=== PATIENT | male | born 1995 | race Caucasian/White ===

== ENCOUNTER 2018-02-20 20:43 | Emergency (ER) | payer SELFPAY ==
[2018-02-20] MEDS ORDERED: TETANUS & DIPHTHERIA TOX,ADULT 0.5 ML VIAL ONE (21:24)
--- NOTE | 2018-02-20 22:01 | RAD REPORT ---
EXAM DESCRIPTION: CT - Head Brain Wo Cont - 02/20/2018 9:34 pm CLINICAL HISTORY: Headache COMPARISON: CT study December 2016 TECHNIQUE: Axial 5 mm thick images of the head were obtained without IV contrast. All CT scans are performed using dose optimization technique as appropriate and may include automated exposure control or mA/KV adjustment according to patient size. FINDINGS: No intracranial hemorrhage, mass, edema or shift of mid-line structures. No acute infarcti on changes seen. No abnormal extra-axial fluid collections. Ventricles are normal. Mastoid air cells and visualized portions of the paranasal sinuses are clear. No acute bony findings. IMPRESSION: Negative non-contrast CT head examination. No significant change from comparison.
--- NOTE | 2018-02-20 22:35 | ER ---
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 Transition of care: patient was not received from another setting of care. Complicating Factors: There are no complicating factors for this patient. Onset of symptoms was February 20, 2018. Risk Assessment: Do you want to hurt yourself or someone else? Patient reports no desire to harm self or others. Care prior to arrival: None. 20:58 Method Of Arrival: Ambulatory aj 20:58 Acuity: DIEGO 4 aj 21:19 Initial Sepsis Screen: Does the patient meet any 2 criteria? No. Patient's initial tl2 sepsis screen is negative. Does the patient have a suspected source of infection? No. Patient's initial sepsis screen is negative. Triage Assessment: 20:59 General: Appears in no apparent distress. comfortable, Behavior is calm, cooperative, aj appropriate for age. Pain: Complains of pain in top of head. Neuro: Level of Consciousness is awake, alert, obeys commands, Oriented to person, place, time, situation, Appropriate for age. Respiratory: Airway is patent Respiratory effort is even, unlabored, Respiratory pattern is regular, symmetrical. Derm: Skin is intact, is healthy with good turgor, Skin is pink, warm \T\ dry. normal. Injury Description: Laceration sustained to top of head is superficial, not bleeding. Historical: - Allergies: 20:59 No Known Allergies; aj - Home Meds: 20:59 None [Active]; aj - PMHx: 20:59 Seizures; aj - PSHx: 20:59 eye surgery; aj - Immunization history:: Last tetanus immunization: unknown. - Social history:: Smoking status: Patient uses tobacco products, smokes one-half pack cigarettes per day. - Ebola Screening: : No symptoms or risks identified at this time. Screenin:19 Abuse screen: Denies threats or abuse. Nutritional screening: No deficits noted. tl2 Tuberculosis screening: No symptoms or risk factors identified. Fall Risk None identified. Assessment: 21:16 General: Appears in no apparent distress. comfortable, Behavior is calm, cooperative, tl2 appropriate for age. Pain: Complains of pain in top of head. Neuro: Level of Consciousness is awake, alert, obeys commands, Oriented to person, place, time, situation. Neuro: Reports dizziness, headache. Neuro: Denies LOC. Cardiovascular: Denies chest pain. Respiratory: Airway is patent Respiratory effort is even, unlabored, Respiratory pattern is regular, symmetrical. GI: Patient currently denies nausea, vomiting. Musculoskeletal: Circulation, motion, and sensation intact. Injury Description: Abrasion sustained to top of head is scabbed, was sustained 1-2 hours ago. 21:56 Reassessment: Patient appears in no apparent distress at this time. Patient and/or tl2 family updated on plan of care and expected duration. Pain level reassessed. Patient is alert, oriented x 3, equal unlabored respirations, skin warm/dry/pink. Injury Description:. 22:42 Reassessment: Patient appears in no apparent distress at this time. Patient and/or tl2 family updated on plan of care and expected duration. Pain level reassessed. Patient is alert, oriented x 3, equal unlabored respirations, skin warm/dry/pink. Pt verbalized understanding of discharge instructions, need for follow up. Vital Signs: 21:00 BP 140 / 77; Pulse 86; Resp 19; Temp 98.3; Pulse Ox 99% on R/A; Weight 65.77 kg; Height aj 5 ft. 5 in. (165.10 cm); 22:43 Pulse 87; Resp 18; Pulse Ox 99% on R/A; Pain 0/10; tl2 21:00 Body Mass Index 24.13 (65.77 kg, 165.10 cm) ED Course: 20:58 Patient arrived in ED. aj 20:59 Triage completed. aj 21:00 Arm band placed on right wrist. Patient placed in waiting room, Patient notified of aj wait time. 21:14 Argenis Murphy, DENISE is Primary Nurse. tl2 21:15 Nino Jensen NP is PHCP. pm1 21:15 Matias Blancas MD is Attending Physician. pm1 21:19 Patient has correct armband on for positive identification. Bed in low position. Call tl2 light in reach. Side rails up X 1. Adult w/ patient. 21:34 CT Head Brain wo Cont In Process Unspecified. EDMS 21:34 CT completed. Patient tolerated procedure well. Patient moved to CT via wheelchair. vm2 Patient moved back from CT. 22:43 No provider procedures requiring assistance completed. Patient did not have IV access tl2 during this emergency room visit. 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 Exp: tl2 05/22/2020. Lot #: [id number]. } Route: IM; Site: right deltoid; 22:58 Follow up: Response: No adverse reaction tl2 Outcome: 22:34 Discharge ordered by . pm1 22:58 Discharged to home ambulatory, with family. tl2 22:58 Condition: stable 22:58 Discharge instructions given to patient, Instructed on discharge instructions, follow up and referral plans. 22:58 Patient left the ED. tl2 Signatures: Dispatcher [employer] EDMS Cait Acosta RN RN aj Marinas, Patrick, KALI [employer] EQUALIZER pm1 Argenis Murphy RN RN tl2 Sydni Rosen [facility]
--- NOTE | 2018-02-20 22:35 | EDPHYS ---
Physician Documentation [facility] Name: Kal Cool Age: 22 yrs Sex: Male : 1995 Arrival Date: 02/20/2018 Time: 20:58 Bed 23 Private MD: ED Physician Matias Blancas HPI: 02/20 22:06 This 22 yrs old Male presents to ER via Ambulatory with complaints of pm1 Laceration To Head. 22:06 The patient has a laceration related to: working, occurred at work, and there are no pm1 complicating factors. The injury was accidental. The laceration(s) is(are) located on the top of head. Onset: The symptoms/episode began/occurred 3 hour(s) ago. Associated signs and symptoms: Pertinent negatives: deformity, heavy bleeding, loss of consciousness, suspected foreign body. The patient has not experienced similar symptoms in the past. The patient has not recently seen a physician. 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 Complaining of headache since injury. Historical: - Allergies: 20:59 No Known Allergies; aj - Home Meds: 20:59 None [Active]; aj - PMHx: 20:59 Seizures; aj - PSHx: 20:59 eye surgery; aj - Immunization history:: Last tetanus immunization: unknown. - Social history:: Smoking status: Patient uses tobacco products, smokes one-half pack cigarettes per day. - Ebola Screening: : No symptoms or risks identified at this time. ROS: 22:10 Constitutional: Negative for fever, chills, and weight loss, Eyes: Negative for injury, pm1 pain, redness, and discharge, ENT: Negative for injury, pain, and discharge, Neck: Negative for injury, pain, and swelling, Cardiovascular: Negative for chest pain, palpitations, and edema, Respiratory: Negative for shortness of breath, cough, wheezing, and pleuritic chest pain, Abdomen/GI: Negative for abdominal pain, nausea, vomiting, diarrhea, and constipation, Back: Negative for injury and pain, MS/Extremity: Negative for injury and deformity. 22:10 Neuro: Negative for weakness, numbness, tingling, and seizure. Positive for headache 22:10 Skin: Positive for laceration(s), of the top of head. Exam: 22:10 Constitutional: This is a well developed, well nourished patient who is awake, alert, pm1 and in no acute distress. 22:10 Eyes: Pupils equal round and reactive to light, extra-ocular motions intact. Lids and lashes normal. Conjunctiva and sclera are non-icteric and not injected. Cornea within normal limits. Periorbital areas with no swelling, redness, or edema. ENT: Nares patent. No nasal discharge, no septal abnormalities noted. Tympanic membranes are normal and external auditory canals are clear. Oropharynx with no redness, swelling, or masses, exudates, or evidence of obstruction, uvula midline. Mucous membranes moist. Neck: Trachea midline, no thyromegaly or masses palpated, and no cervical lymphadenopathy. Supple, full range of motion without nuchal rigidity, or vertebral point tenderness. No Meningismus. Chest/axilla: Normal chest wall appearance and motion. Nontender with no deformity. No lesions are appreciated. Cardiovascular: Regular rate and rhythm with a normal S1 and S2. No gallops, murmurs, or rubs. Normal PMI, no JVD. No pulse deficits. Respiratory: Lungs have equal breath sounds bilaterally, clear to auscultation and percussion. No rales, rhonchi or wheezes noted. No increased work of breathing, no retractions or nasal flaring. Abdomen/GI: Soft, non-tender, with normal bowel sounds. No distension or tympany. No guarding or rebound. No evidence of tenderness throughout. Back: No spinal tenderness. No costovertebral tenderness. Full range of motion. Skin: Warm, dry with normal turgor. Normal color with no rashes, and no evidence of cellulitis. MS/ Extremity: Pulses equal, no cyanosis. Neurovascular intact. Full, normal range of motion. 22:10 Head/face: Noted is abrasion(s), that are mild, of the top of head, laceration absent. 22:10 Neuro: Orientation: is normal, Mentation: is normal, Cerebellar function: normal finger to nose testing, Motor: moves all fours, strength is 5/5 in all extremities, Sensation: is normal, no obvious gross deficits, Gait: is steady, at a normal pace, without difficulty. Vital Signs: 21:00 BP 140 / 77; Pulse 86; Resp 19; Temp 98.3; Pulse Ox 99% on R/A; Weight 65.77 kg; Height aj 5 ft. 5 in. (165.10 cm); 22:43 Pulse 87; Resp 18; Pulse Ox 99% on R/A; Pain 0/10; tl2 21:00 Body Mass Index 24.13 (65.77 kg, 165.10 cm) aj MDM: 21:15 Patient medically screened. pm1 22:30 Data reviewed: vital signs. Data interpreted: Pulse oximetry: on room air is 99 %. pm1 Interpretation: normal. Counseling: I had a detailed discussion with the patient and/or guardian regarding: the historical points, exam findings, and any diagnostic results supporting the discharge/admit diagnosis, radiology results, to return to the emergency department if symptoms worsen or persist or if there are any questions or concerns that arise at home. 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 Exp: tl2 05/22/2020. Lot #: [id number]. } Route: IM; Site: right deltoid; 22:58 Follow up: Response: No adverse reaction tl2 Disposition: 02/21 05:56 Co-signature as Attending Physician, Matias Blancas MD I agree with the assessment and tw4 plan of care. Disposition: 02/20/18 22:34 Discharged to Home. Impression: Abrasion of scalp, Headache. - Condition is Stable. - Discharge Instructions: Abrasion, Head Injury, Adult. - Work release form, Medication Reconciliation Form, Thank You Letter form. - Follow up: Emergency Department; When: As needed; Reason: Worsening of condition. Follow up: Private Physician; When: 2 - 3 days; Reason: Recheck today's complaints, Continuance of care, Re-evaluation by your physician. - Problem is new. - Symptoms have improved. - Notes: Take ibuprofen or tylenol as needed for pain Signatures: Dispatcher [employer] EDCait Guallpa RN RN aj Marinas, Patrick, KALI CIGAR MAKER pm1 Argenis Murphy RN RN tl2 Matias Blancas MD MD tw4 Corrections: (The following items were deleted from the chart) 02/20 22:58 22:34 02/20/2018 22:34 Discharged to Home. Impression: Abrasion of scalp; Headache. tl2 Condition is Stable. Forms are Medication Reconciliation Form, Thank You Letter, Antibiotic Education, Prescription Opioid Use. Follow up: Emergency Department; When: As needed; Reason: Worsening of condition. Follow up: Private Physician; When: 2 - 3 days; Reason: Recheck today's complaints, Continuance of care, Re-evaluation by your physician. Problem is new. Symptoms have improved. pm1 02/21 01:58 02/20 22:10 Neuro: Negative for headache, weakness, numbness, tingling, and seizure, pm1pm1
== END 2018-02-20 22:58 | disposition home or self-care (01) ==
LOC: ER 20:43
DX: S00.01XA Abrasion of scalp, initial encounter (principal); F17.210 Nicotine dependence, cigarettes, uncomplicated; Z23 Encounter for immunization; W31.89XA Contact with other specified machinery, initial encounter; Y93.89 Activity, other specified; Y92.89 Other specified places as the place of occurrence of the external cause; Y99.0 Civilian activity done for income or pay
CPT/HCPCS: 70450; 90714; 99284

== ENCOUNTER 2018-08-16 21:08 | Emergency (ER) | payer SELFPAY ==
--- NOTE | 2018-08-16 21:39 | EDPHYS ---
Physician Documentation [facility] Name: Kal Cool Age: 22 yrs Sex: Male : 1995 Arrival Date: 08/16/2018 Time: 21:09 Bed 7 Private MD: ED Physician Benjamin Bazzi HPI: 08/16 21:41 This 22 yrs old Male presents to ER via Ambulatory with complaints of Cough. snw 21:41 The patient or guardian reports cough, with no sputum. Onset: The symptoms/episode snw began/occurred suddenly, 2 day(s) ago, and became persistent. Severity of symptoms: At their worst the symptoms were moderate. Associated signs and symptoms: The patient has no apparent associated signs or symptoms. The patient has experienced similar episodes in the past. The patient has not recently seen a physician. Historical: - Allergies: 21:18 No Known Allergies; tl2 - Home Meds: 21:18 None [Active]; tl2 - PMHx: 21:18 Seizures; tl2 - PSHx: 21:18 eye sx; tl2 - Immunization history:: Adult Immunizations up to date. - Social history:: Smoking status: Patient uses tobacco products, smokes one pack cigarettes per day. - Ebola Screening: : No symptoms or risks identified at this time. ROS: 21:41 Constitutional: Negative for fever, chills, and weight loss, Eyes: Negative for injury, snw pain, redness, and discharge, ENT: Negative for injury, pain, and discharge, Neck: Negative for injury, pain, and swelling, Cardiovascular: Negative for chest pain, palpitations, and edema, Abdomen/GI: Negative for abdominal pain, nausea, vomiting, diarrhea, and constipation, Back: Negative for injury and pain, : Negative for injury, bleeding, discharge, and swelling, MS/Extremity: Negative for injury and deformity, Skin: Negative for injury, rash, and discoloration, Neuro: Negative for headache, weakness, numbness, tingling, and seizure. 21:41 Respiratory: Positive for cough. Exam: 21:40 Constitutional: This is a well developed, well nourished patient who is awake, alert, snw and in no acute distress. Head/Face: Normocephalic, atraumatic. Eyes: Pupils equal round and reactive to light, extra-ocular motions intact. Lids and lashes normal. Conjunctiva and sclera are non-icteric and not injected. Cornea within normal limits. Periorbital areas with no swelling, redness, or edema. ENT: Nares patent. No nasal discharge, no septal abnormalities noted. Tympanic membranes are normal and external auditory canals are clear. Oropharynx with no redness, swelling, or masses, exudates, or evidence of obstruction, uvula midline. Mucous membranes moist. Neck: Trachea midline, no thyromegaly or masses palpated, and no cervical lymphadenopathy. Supple, full range of motion without nuchal rigidity, or vertebral point tenderness. No Meningismus. Chest/axilla: Normal chest wall appearance and motion. Nontender with no deformity. No lesions are appreciated. Cardiovascular: Regular rate and rhythm with a normal S1 and S2. No gallops, murmurs, or rubs. Normal PMI, no JVD. No pulse deficits. Abdomen/GI: Soft, non-tender, with normal bowel sounds. No distension or tympany. No guarding or rebound. No evidence of tenderness throughout. Back: No spinal tenderness. No costovertebral tenderness. Full range of motion. Skin: Warm, dry with normal turgor. Normal color with no rashes, no lesions, and no evidence of cellulitis. MS/ Extremity: Pulses equal, no cyanosis. Neurovascular intact. Full, normal range of motion. Neuro: Awake and alert, GCS 15, oriented to person, place, time, and situation. Cranial nerves II-XII grossly intact. Motor strength 5/5 in all extremities. Sensory grossly intact. Cerebellar exam normal. Normal gait. Psych: Awake, alert, with orientation to person, place and time. Behavior, mood, and affect are within normal limits. 21:40 Respiratory: the patient does not display signs of respiratory distress, Respirations: normal, Breath sounds: are clear throughout, bronchitic cough. Vital Signs: 21:18 BP 152 / 55; Pulse 85; Resp 18; Temp 98.2(O); Pulse Ox 100% on R/A; Weight 73.94 kg; tl2 Height 5 ft. 6 in. (167.64 cm); Pain 0/10; 21:18 Body Mass Index 26.31 (73.94 kg, 167.64 cm) tl2 MDM: 21:23 Patient medically screened. snw 21:40 Data reviewed: vital signs, nurses notes. Data interpreted: Pulse oximetry: on room air snw is 100 %. Interpretation: normal. Counseling: I had a detailed discussion with the patient and/or guardian regarding: the historical points, exam findings, and any diagnostic results supporting the discharge/admit diagnosis, the presence of at least one elevated blood pressure reading (>120/80) during this emergency department visit, the need for outpatient follow up, for definitive care, to return to the emergency department if symptoms worsen or persist or if there are any questions or concerns that arise at home. Special discussion: I have referred the patient to see his PCP for further evaluation of high blood pressure. Based on the history and exam findings, there is no indication for further emergent testing or inpatient evaluation. I discussed with the patient/guardian the need to see the primary care provider for further evaluation of the symptoms. Administered Medications: No medications were administered Disposition: 08/17 06:02 Co-signature as Attending Physician, Benjamin Bazzi MD. ma2 Disposition: 08/16/18 21:38 Discharged to Home. Impression: Bronchitis, not specified as acute or chronic. - Condition is Stable. - Discharge Instructions: Acute Bronchitis, Adult, Hypertension, How to Use an Inhaler, Steps to Quit Smoking, Cool Mist Vaporizer. - Prescriptions for Tessalon Perles 100 mg Oral Capsule - take 1 capsule by ORAL route every 8 hours As needed; 15 capsule. Prednisone 20 mg Oral Tablet - take 2 tablet by ORAL route once daily for 5 days; 10 tablet. Albuterol Sulfate 90 mcg/actuation - inhale 1-2 puff by INHALATION route every 4-6 hours; 1 Inhaler. - Work release form, Medication Reconciliation Form, Thank You Letter, Antibiotic Education, Prescription Opioid Use form. - Follow up: Private Physician; When: 2 - 3 days; Reason: Recheck today's complaints, Continuance of care, Re-evaluation by your physician. Follow up: Emergency Department; When: As needed; Reason: Worsening of condition. Signatures: Kimberley Graves, DOMENICA-C MANAGER RESEARCH AND DEVELOPMENT-Candacew Argenis Murphy RN RN tl2 Benjamin Bazzi MD MD ma2 Corrections: (The following items were deleted from the chart) 08/16 21:55 21:38 08/16/2018 21:38 Discharged to Home. Impression: Bronchitis, not specified as tl2 acute or chronic. Condition is Stable. Forms are Medication Reconciliation Form, Thank You Letter, Antibiotic Education, Prescription Opioid Use. Follow up: Private Physician; When: 2 - 3 days; Reason: Recheck today's complaints, Continuance of care, Re-evaluation by your physician. Follow up: Emergency Department; When: As needed; Reason: Worsening of condition. snw
--- NOTE | 2018-08-16 21:39 | ER ---
Nurse's Notes [facility] Name: Kal Cool Age: 22 yrs Sex: Male : 1995 Arrival Date: 08/16/2018 Time: 21:09 Bed 7 Private MD: Diagnosis: Bronchitis, not specified as acute or chronic Presentation: 08/16 21:17 Presenting complaint: Patient states: productive cough for 2 days and sneezing. Denies tl2 sore throat. Took Theraflu and Nyquil at home. Transition of care: patient was not received from another setting of care. Onset of symptoms was August 14, 2018. Risk Assessment: Do you want to hurt yourself or someone else? Patient reports no desire to harm self or others. Initial Sepsis Screen: Does the patient meet any 2 criteria? No. Patient's initial sepsis screen is negative. Does the patient have a suspected source of infection? No. Patient's initial sepsis screen is negative. Care prior to arrival: None. 21:17 Method Of Arrival: Ambulatory tl2 21:17 Acuity: DIEGO 4 tl2 Triage Assessment: 21:18 General: Appears in no apparent distress. uncomfortable, Behavior is calm, cooperative, tl2 appropriate for age. Pain: Denies pain. Neuro: Level of Consciousness is awake, alert, obeys commands, Oriented to person, place, time, situation. Cardiovascular: Denies chest pain. Respiratory: Reports cough that is productive, persistent Airway is patent Respiratory effort is even, unlabored, Respiratory pattern is regular, symmetrical. GI: No signs and/or symptoms were reported involving the gastrointestinal system. : No signs and/or symptoms were reported regarding the genitourinary system. Historical: - Allergies: 21:18 No Known Allergies; tl2 - Home Meds: 21:18 None [Active]; tl2 - PMHx: 21:18 Seizures; tl2 - PSHx: 21:18 eye sx; tl2 - Immunization history:: Adult Immunizations up to date. - Social history:: Smoking status: Patient uses tobacco products, smokes one pack cigarettes per day. - Ebola Screening: : No symptoms or risks identified at this time. Screenin:20 Abuse screen: Denies threats or abuse. Nutritional screening: No deficits noted. tl2 Tuberculosis screening: No symptoms or risk factors identified. Fall Risk None identified. Assessment: 21:18 General: see triage assessment. tl2 21:54 Reassessment: Patient appears in no apparent distress at this time. Patient and/or tl2 family updated on plan of care and expected duration. Pain level reassessed. Patient is alert, oriented x 3, equal unlabored respirations, skin warm/dry/pink. Pt verbalized understanding of discharge instructions, need for follow up and prescription usage. Vital Signs: 21:18 BP 152 / 55; Pulse 85; Resp 18; Temp 98.2(O); Pulse Ox 100% on R/A; Weight 73.94 kg; tl2 Height 5 ft. 6 in. (167.64 cm); Pain 0/10; 21:18 Body Mass Index 26.31 (73.94 kg, 167.64 cm) tl2 ED Course: 21:09 Patient arrived in ED. am2 21:12 Kimberley Graves [facility]C [facility]. snw 21:12 Benjamin Bazzi MD is Attending Physician. snw 21:17 Argenis Murphy RN is Primary Nurse. tl2 21:18 Triage completed. tl2 21:18 Arm band placed on right wrist. tl2 21:20 Patient has correct armband on for positive identification. Bed in low position. Call tl2 light in reach. Side rails up X 1. 21:54 No provider procedures requiring assistance completed. Patient did not have IV access tl2 during this emergency room visit. Administered Medications: No medications were administered Outcome: 21:38 Discharge ordered by . snw 21:54 Discharged to home ambulatory, with family. tl2 21:54 Condition: stable 21:54 Discharge instructions given to patient, family, Instructed on discharge instructions, follow up and referral plans. medication usage, Demonstrated understanding of instructions, follow-up care, medications, Prescriptions given X 3. 21:55 Patient left the ED. tl2 Signatures: Kimberley Graves FNP-C FNP-Candacew Argenis Murphy RN RN tl2 Cait Davis am2
== END 2018-08-16 21:55 | disposition home or self-care (01) ==
LOC: ER 21:08
DX: J40 Bronchitis, not specified as acute or chronic (principal); F17.210 Nicotine dependence, cigarettes, uncomplicated
CPT/HCPCS: 99282

== ENCOUNTER 2019-05-22 13:49 | Emergency (ER) | payer SELFPAY ==
--- NOTE | 2019-05-22 14:28 | RAD REPORT ---
EXAM DESCRIPTION: CT - Head Brain Wo Cont - 05/22/2019 2:17 pm CLINICAL HISTORY: VISUAL DISTURBANCES Headache, drowsiness COMPARISON: Head Brain Wo Cont dated 02/20/2018; Head Brain Wo Cont dated 12/25/2016 TECHNIQUE: All CT scans are performed using dose optimization technique as appropriate and may inclu de automated exposure control or mA/KV adjustment according to patient size. FINDINGS: No intracranial hemorrhage, hydrocephalus or extra-axial fluid collection.No areas of brai n edema or evidence of midline shift. Significant mucus is seen in the inferior right maxillary antrum. The paranasal sinuses and mastoids are otherwise clear. The calvarium is intact. IMPRESSION: No acute intracranial abnormality.
--- NOTE | 2019-05-22 15:27 | ER ---
Nurse's Notes [facility] Name: Kal Cool Age: 23 yrs Sex: Male : 1995 Arrival Date: 05/22/2019 Time: 13:51 Bed 18 Private MD: Diagnosis: Exotropia-.;Other visual disturbances-blurred vision Presentation: 05/22 13:53 Presenting complaint: Patient states: blurry/double vision started Saturday and went sv away and then started today while driving. Denies recent head injury, fall, or cough. c/o headache. Transition of care: patient was not received from another setting of care. Onset of symptoms was May 22, 2019. Risk Assessment: Do you want to hurt yourself or someone else? Patient reports no desire to harm self or others. Initial Sepsis Screen: Does the patient meet any 2 criteria? No. Patient's initial sepsis screen is negative. Does the patient have a suspected source of infection? No. Patient's initial sepsis screen is negative. Care prior to arrival: None. 13:53 Method Of Arrival: Ambulatory sv 13:53 Acuity: DIEGO 3 sv Historical: - Allergies: 13:55 No Known Allergies; sv - Home Meds: 13:55 Tramadol Oral [Active]; Amoxicillin Oral [Active]; sv - PMHx: 13:55 Seizures; sv - PSHx: 13:55 eye sx; sv Screenin:45 Abuse screen: Denies threats or abuse. Nutritional screening: No deficits noted. em Tuberculosis screening: No symptoms or risk factors identified. Fall Risk None identified. Assessment: 14:15 General: Appears in no apparent distress. comfortable, Behavior is calm, cooperative, em Denies fever. Pain: Denies pain. Neuro: Level of Consciousness is awake, alert, obeys commands, Oriented to person, place, time, situation, Appropriate for age Endoscopy Rn are equal bilaterally Speech is normal, Reports blurred vision only when driving. Cardiovascular: Capillary refill < 3 seconds Patient's skin is warm and dry. Respiratory: Airway is patent Respiratory effort is even, unlabored, Respiratory pattern is regular, symmetrical. GI: Patient currently denies nausea, vomiting. Derm: Skin is intact, is healthy with good turgor, Skin is pink, warm \T\ dry. Musculoskeletal: Capillary refill < 3 seconds, Range of motion: intact in all extremities. Vital Signs: 13:55 BP 133 / 72; Pulse 80; Resp 16; Temp 98.3; Pulse Ox 100% ; Weight 72.57 kg; Height 5 sv ft. 6 in. (167.64 cm); 13:55 Body Mass Index 25.82 (72.57 kg, 167.64 cm) sv ED Course: 13:51 Patient arrived in ED. mr 13:54 Triage completed. sv 13:55 Arm band placed on. sv 14:04 Nino Jensen NP is PHCP. pm1 14:04 Chilango Fofana MD is Attending Physician. pm1 14:10 Patient has correct armband on for positive identification. Bed in low position. Call em light in reach. 14:15 Davin Anna LVN is Primary Nurse. em 14:16 CT Head Brain wo Cont In Process Unspecified. EDMS 14:59 Davin Anna LVN is Primary Nurse. em 15:55 No provider procedures requiring assistance completed. Patient did not have IV access em during this emergency room visit. Administered Medications: No medications were administered Outcome: 15:26 Discharge ordered by MD. pm1 15:55 Discharged to home ambulatory, with family. em 15:55 Condition: good 15:55 Discharge instructions given to patient, family, Instructed on discharge instructions, follow up and referral plans. Demonstrated understanding of instructions, follow-up care. 15:56 Patient left the ED. em Signatures: Dispatcher [employer] Daisy Cox RN RN sv Theo Tammie mr Davin Anna LVN LVN em Nino Jensen NP ROLLER INSPECTOR pm1 Corrections: (The following items were deleted from the chart) 14:59 14:15 Neuro: Level of Consciousness is awake, alert, obeys commands, Oriented to em person, place, time, situation, Appropriate for age Endoscopy Rn are equal bilaterally Speech is normal, em
--- NOTE | 2019-05-22 15:27 | EDPHYS ---
Physician Documentation [facility] Name: Kal Cool Age: 23 yrs Sex: Male : 1995 Arrival Date: 05/22/2019 Time: 13:51 Bed 18 Private MD: ED Physician Chilango Fofana HPI: 05/22 15:19 This 23 yrs old Male presents to ER via Ambulatory with complaints of Blurred pm1 Vision. 15:19 The patient is experiencing blurred vision, The patient sustained None. to both eyes, pm1 caused by an unknown mechanism. Onset: The symptoms/episode began/occurred 1 week(s) ago. Duration: the symptoms Occurs with driving and not wearing glasses. Associated signs and symptoms: Pertinent negatives: ear ache, fever, headache. Patient wears glasses, but does not wear them. Lost prior pair and cannot afford to get a new pair. Severity of symptoms: in the emergency department the symptoms have resolved. The patient has not recently seen a physician. Historical: - Allergies: 13:55 No Known Allergies; sv - Home Meds: 13:55 Tramadol Oral [Active]; Amoxicillin Oral [Active]; sv - PMHx: 13:55 Seizures; sv - PSHx: 13:55 eye sx; sv ROS: 15:19 Constitutional: Negative for fever, chills, and weight loss. pm1 15:19 ENT: Negative for injury, pain, and discharge, Neck: Negative for injury, pain, and swelling, Cardiovascular: Negative for chest pain, palpitations, and edema, Respiratory: Negative for shortness of breath, cough, wheezing, and pleuritic chest pain, Abdomen/GI: Negative for abdominal pain, nausea, vomiting, diarrhea, and constipation, Back: Negative for injury and pain, MS/Extremity: Negative for injury and deformity, Skin: Negative for injury, rash, and discoloration, Neuro: Negative for headache, weakness, numbness, tingling, and seizure. 15:19 Eyes: Positive for blurry vision, Negative for pain, vision loss, visual disturbance. Exam: 15:19 Constitutional: This is a well developed, well nourished patient who is awake, alert, pm1 and in no acute distress. Head/Face: Normocephalic, atraumatic. 15:19 ENT: Nares patent. No nasal discharge, no septal abnormalities noted. Tympanic membranes are normal and external auditory canals are clear. Oropharynx with no redness, swelling, or masses, exudates, or evidence of obstruction, uvula midline. Mucous membranes moist. Neck: Trachea midline, no thyromegaly or masses palpated, and no cervical lymphadenopathy. Supple, full range of motion without nuchal rigidity, or vertebral point tenderness. No Meningismus. Chest/axilla: Normal chest wall appearance and motion. Nontender with no deformity. No lesions are appreciated. Cardiovascular: Regular rate and rhythm with a normal S1 and S2. No gallops, murmurs, or rubs. Normal PMI, no JVD. No pulse deficits. Respiratory: Lungs have equal breath sounds bilaterally, clear to auscultation and percussion. No rales, rhonchi or wheezes noted. No increased work of breathing, no retractions or nasal flaring. Abdomen/GI: Soft, non-tender, with normal bowel sounds. No distension or tympany. No guarding or rebound. No evidence of tenderness throughout. Back: No spinal tenderness. No costovertebral tenderness. Full range of motion. Skin: Warm, dry with normal turgor. Normal color with no rashes, no lesions, and no evidence of cellulitis. MS/ Extremity: Pulses equal, no cyanosis. Neurovascular intact. Full, normal range of motion. 15:19 Eyes: Periorbital structures: appear normal, Pupils: no acute changes, Extraocular movements: patient reports blurred vision with moving his eyes side to side, Conjunctiva: normal, Patient reports bilateral blurred vision with objects too far away to see. His baseline. 15:19 Neuro: Orientation: is normal, Motor: is normal, moves all fours. Vital Signs: 13:55 BP 133 / 72; Pulse 80; Resp 16; Temp 98.3; Pulse Ox 100% ; Weight 72.57 kg; Height 5 sv ft. 6 in. (167.64 cm); 13:55 Body Mass Index 25.82 (72.57 kg, 167.64 cm) sv MDM: 14:04 Patient medically screened. pm1 15:19 Data reviewed: vital signs. Data interpreted: Pulse oximetry: on room air is 100 %. pm1 Interpretation: normal. Counseling: I had a detailed discussion with the patient and/or guardian regarding: the historical points, exam findings, and any diagnostic results supporting the discharge/admit diagnosis, radiology results, the need for outpatient follow up, to return to the emergency department if symptoms worsen or persist or if there are any questions or concerns that arise at home. 05/22 14:05 Order name: CT Head Brain wo Cont pm1 Administered Medications: No medications were administered Disposition: 16:07 Co-signature as Attending Physician, Chilango Fofana MD I agree with the assessment and kdr plan of care. Disposition: 05/22/19 15:26 Discharged to Home. Impression: Exotropia - ., Other visual disturbances - blurred vision. - Condition is Stable. - Discharge Instructions: Blurred Vision, Adult, Strabismus, Adult. - Medication Reconciliation Form, Thank You Letter, Antibiotic Education, Prescription Opioid Use form. - Follow up: Emergency Department; When: As needed; Reason: Worsening of condition. Follow up: Private Physician; When: 2 - 3 days; Reason: Recheck today's complaints, Continuance of care, Re-evaluation by your physician. - Problem is new. - Symptoms have improved. Signatures: Dispatcher [employer] Daisy Cox RN RN sv Rittger, Kevin, MD MD [facility] Davin Anna, MUSEUM CURATOR MUSEUM CURATOR em Nino Jensen, KALI PIPE WELDER pm1 Corrections: (The following items were deleted from the chart) 15:26 15:26 05/22/2019 15:26 Discharged to Home. Impression: Exotropia - right eye; Other pm1 visual disturbances - blurred vision. Condition is Stable. Forms are Medication Reconciliation Form, Thank You Letter, Antibiotic Education, Prescription Opioid Use. pm1 15:28 15:26 05/22/2019 15:26 Discharged to Home. Impression: Exotropia - right eye; Other pm1 visual disturbances - blurred vision. Condition is Stable. Forms are Medication Reconciliation Form, Thank You Letter, Antibiotic Education, Prescription Opioid Use. Follow up: Emergency Department; When: As needed; Reason: Worsening of condition. Follow up: Private Physician; When: 2 - 3 days; Reason: Recheck today's complaints, Continuance of care, Re-evaluation by your physician. Problem is new. Symptoms have improved. pm1 15:56 15:28 05/22/2019 15:26 Discharged to Home. Impression: Exotropia - .; Other visual em disturbances - blurred vision. Condition is Stable. Discharge Instructions: Blurred Vision, Adult, Strabismus, Adult. Forms are Medication Reconciliation Form, Thank You Letter, Antibiotic Education, Prescription Opioid Use. Follow up: Emergency Department; When: As needed; Reason: Worsening of condition. Follow up: Private Physician; When: 2 - 3 days; Reason: Recheck today's complaints, Continuance of care, Re-evaluation by your physician. Problem is new. Symptoms have improved. pm1
== END 2019-05-22 15:56 | disposition home or self-care (01) ==
LOC: ER 13:49
DX: H50.10 Unspecified exotropia (principal)
CPT/HCPCS: 70450; 99283

== ENCOUNTER 2021-05-25 15:44 | Emergency (ER) | payer OTHER, SELFPAY ==
--- OUTSIDE RECORDS SUMMARY | 2021-05-25 15:47 | XMS REPORT | Continuity of Care Document ---
:1995 Author Organization [facility] t Address [address] [place] [address] Care Team Providers Name Role Phone Pcp, Does Not Have A Primary Care Physician Payers Payer Name Policy Type Policy Number Effective Date Expiration Date S ource Problems Condition Condition Condition Status Onset Resolution Last Treating Co mments Source Name Details Category Date Date Treatment Clinician Date No known No known Disease Unive rs active active ity of problems problems [facility] Allergies, Adverse Reactions, Alerts This patient has no known allergies or adverse reactions. Social History Social Habit Start Date Stop Date Quantity Comments Source Sex Assigned At [birth year] [facility] [place] [facility]:00:00 00:00:00 [facility] Smoking Status Start Date Stop Date Source Never smoker [facility] Medications Ordered Filled Start Stop Current Ordering Indication Dosage Frequency Signature Comments Components Source Medication Medication Date Date Medication? Clinician (SIG) Name Name ketoconazol Yes [id number] Apply to [facility] e 2 % cream 12-22 area(s) ity o f 00:00: daily. [address] benzonatate 2019-0 Yes [id number] 200mg Take 1 [facility] 200 mg 9-24 capsule by ity of capsule 00:00: mouth [address] [place] [id number] (three) Medical times [place] daily as needed for Cough for up to 20 doses. ibuprofen Yes [id number] 600mg Take 1 [facility] 600 mg 9-24 tablet by ity of tablet 00:00: mouth [place] 00 every 6 Medical (six) Branch hours as needed for Pain (scale 4-6). ondansetron 2019-0 Yes [id number] 4mg Take 1 Univers (ZOFRAN 9-24 tablet by ity of ODT) 4 mg 00:00: mouth [place] disintegrat 00 every 8 Medic al ing tablet (eight) Branch hours as needed for Nausea and Vomiting (N/V). neomycin-po Yes 4[drp] Place 4 U nivers lymyxin-hyd 4-11 Drops in ity of rocortisone 00:00: left ear 4 [place] 3.5-10,000- 00 (four) Medica l 1 times Branch mg/mL-unit/ daily. For mL-% otic a week susp traMADOL 50 Yes 50mg Take 1 Univ ers mg tablet 4-11 tablet by ity o f 00:00: mouth [place] 00 every 6 Medical (six) Branch hours as needed (pain). Procedures Procedure Date / Time Performed Performing Clinician [facility] e CONSENT/REFUSAL FOR 2021-05-25 20:11:18 Doctor Unassigned, No Un [facility] DIAGNOSIS AND Name Medical Branch TREATMENT Encounters Start End Encounter Admission Attending Care Care Encounter Source Date/Time Date/Time Type Type Clinicians Facility Department ID 2021-05-25 2021-05-25 Emergency [facility] [id number] Univers 15:15:00 15:41:00 [place] [id number] i ty of [place] [id number] [facility] [id number] [facility] 084 Branch Results This patient has no known results.
--- NOTE | 2021-05-25 20:07 | ER ---
Nurse's Notes [facility] Name: Kal Cool Age: 25 yrs Sex: Male : 1995 Arrival Date: 05/25/2021 Time: 15:49 Bed External Waiting Private MD: Diagnosis: Diarrhea, unspecified Presentation: 05/25 17:09 Chief complaint: Patient states: Diarrhea x 2 days, COVID exposure. Coronavirus screen: kg Vaccine status: Patient reports being unvaccinated. Client denies travel out of the [place] in the last 14 days. At this time, unable to obtain information related to travel outside the [place] At this time, the client does not indicate any symptoms associated with coronavirus-19. Ebola Screen: Patient negative for fever greater than or equal to 101.5 degrees Fahrenheit, and additional compatible Ebola Virus Disease symptoms Patient denies exposure to infectious person. Patient denies travel to an Ebola-affected area in the 21 days before illness onset. Initial Sepsis Screen: Does the patient meet any 2 criteria? No. Patient's initial sepsis screen is negative. Does the patient have a suspected source of infection? No. Patient's initial sepsis screen is negative. Risk Assessment: Do you want to hurt yourself or someone else? Patient reports no desire to harm self or others. Onset of symptoms was May 24, 2021. 17:09 Method Of Arrival: Ambulatory kg 17:09 Acuity: DIEGO 4 kg Triage Assessment: 20:53 General: Appears in no apparent distress. Behavior is calm, cooperative, appropriate kg for age, quiet. Pain:. Historical: - Allergies: 17:10 No Known Allergies; kg - PMHx: 17:10 Seizures; kg - PSHx: 17:10 None; kg - Immunization history:: Adult Immunizations not up to date, Client reports having NOT received the Covid vaccine. - Social history:: Smoking status: Patient reports the use of cigarette tobacco products, smokes one-half pack cigarettes per day. Screenin:11 Abuse screen: Denies threats or abuse. Denies injuries from another. Nutritional kg screening: No deficits noted. Tuberculosis screening: No symptoms or risk factors identified. Fall Risk None identified. Vital Signs: 17:09 BP 127 / 81; Pulse 87; Resp 20; Temp 98.7(TE); Pulse Ox 100% on R/A; kg ED Course: 15:49 Patient arrived in ED. rg4 16:55 Kameron Askew PA is PHCP. nenita 16:55 Armond Newell MD is Attending Physician. birdm 17:10 Triage completed. kg 17:11 Patient has correct armband on for positive identification. kg 20:53 No provider procedures requiring assistance completed. Patient did not have IV access kg during this emergency room visit. Administered Medications: No medications were administered Outcome: 20:07 Discharge ordered by . jmyuan 20:53 Discharged to home ambulatory. kg 20:53 Condition: good 20:53 Discharge instructions given to Pt left before receiving discharge paperwork 20:54 Patient left the ED. kg Signatures: Kameron Askew PA PA jmm Garcia, Rubi rg4 Yesenia Streeter, RN RN kg
--- NOTE | 2021-05-25 20:08 | EDPHYS ---
Physician Documentation [facility] Name: Kal Cool Age: 25 yrs Sex: Male : 1995 Arrival Date: 05/25/2021 Time: 15:49 Bed External Waiting Private MD: THOMAS Physician Armond Newell HPI: 05/25 20:03 This 25 yrs old Male presents to ER via Ambulatory with complaints of jmm Headache, Abdominal Pain, Diarrhea. 20:03 The patient presents to the emergency department with diarrhea. Onset: The jmm symptoms/episode began/occurred gradually, 2 day(s) ago. Possible causes: sick contacts, . The symptoms are aggravated by nothing. The symptoms are alleviated by nothing. Associated signs and symptoms:. has coronavirus. Historical: - Allergies: 17:10 No Known Allergies; kg - PMHx: 17:10 Seizures; kg - PSHx: 17:10 None; kg - Immunization history:: Adult Immunizations not up to date, Client reports having NOT received the Covid vaccine. - Social history:: Smoking status: Patient reports the use of cigarette tobacco products, smokes one-half pack cigarettes per day. ROS: 20:03 Constitutional: Positive for body aches, fatigue. jmm 20:03 Respiratory: Negative for cough. 20:03 Abdomen/GI: Positive for diarrhea. 20:03 All other systems are negative. Exam: 20:03 Constitutional: This is a well developed, well nourished patient who is awake, alert, jmm and in no acute distress. Head/Face: atraumatic. Eyes: EOMI, no conjunctival erythema appreciated ENT: Moist Mucus Membranes Neck: Trachea midline, Supple Chest/axilla: Normal chest wall appearance and motion. Cardiovascular: Regular rate and rhythm. No edema appreciated Respiratory: Normal respirations, no respiratory distress appreciated Abdomen/GI: Non distended, soft Back: Normal ROM Skin: General appearance color normal MS/ Extremity: Moves all extremities, no obvious deformities appreciated, no edema noted to the lower extremities Neuro: Awake and alert, normal gait Psych: Behavior is normal, Mood is normal, Patient is cooperative and pleasant Vital Signs: 17:09 BP 127 / 81; Pulse 87; Resp 20; Temp 98.7(TE); Pulse Ox 100% on R/A; kg MDM: 17:01 Patient medically screened. jmm 20:05 Data reviewed: vital signs, nurses notes. Counseling: I had a detailed discussion with [facility] the patient and/or guardian regarding: the historical points, exam findings, and any diagnostic results supporting the discharge/admit diagnosis, the need for outpatient follow up, to return to the emergency department if symptoms worsen or persist or if there are any questions or concerns that arise at home. 20:05 ED course: Patient most likely has a viral syndrome. Patient is advised to return to [facility] the ER if he develops right lower quadrant abdominal pain. Patient understood and agrees with plan of care.. 05/25 16:55 Order name: COVID-19 : Document "Date of Symptom Onset" if Symptomatic. kg 05/25 19:49 Order name: SARS-COV-2 RT PCR; Complete Time: 19:49 EDLA Administered Medications: No medications were administered Disposition: 05/26 08:20 Co-signature as Attending Physician, Armond Newell MD I agree with the assessment and nenita plan of care. Disposition Summary: 05/25/21 20:07 Discharge Ordered Location: Home [facility] Condition: Stable [facility] Diagnosis - Diarrhea, unspecified [facility]up[facility] - With: Private Physician - When: 2 - 3 days - Reason: Recheck today's complaints, Continuance of care, Re-evaluation by your physician Discharge Instructions: - Discharge Summary Sheet [facility] - Food Choices to Help Relieve Diarrhea, Adult [facility] Forms: - Medication Reconciliation Form [facility] - Thank You Letter [facility] - Antibiotic Education [facility] - Prescription Opioid Use [facility] Signatures: Dispatcher [employer] EDLA Armond Newell MD MD cha Mickail, Joel, PA PA [facility] Yesenia Streetre, RN RN kg Corrections: (The following items were deleted from the chart) 05/25 18:07 16:56 CORONAVIRUS ordered. [facility]
[2021-05-25 21:07] VITALS: BP 127/81; TEMP 98.7; O2SAT 100
== END 2021-05-25 20:54 | disposition home or self-care (01) ==
LOC: ER 15:44
DX: R19.7 Diarrhea, unspecified (principal); Z20.822 Contact with and (suspected) exposure to COVID-19; F17.210 Nicotine dependence, cigarettes, uncomplicated
CPT/HCPCS: 99281; U0003

== ENCOUNTER 2021-06-01 12:50 | Emergency (ER) | payer OTHER ==
--- OUTSIDE RECORDS SUMMARY | 2021-06-01 12:53 | XMS REPORT | Continuity of Care Document ---
:1995 Author Organization [facility] t Address [address] [place] [address] Care Team Providers Name Role Phone Pcp, Does Not Have A Primary Care Physician Payers Payer Name Policy Type Policy Number Effective Date Expiration Date S ource Problems Condition Condition Condition Status Onset Resolution Last Treating Co mments Source Name Details Category Date Date Treatment Clinician Date No known No known Disease Unive rs active active ity of problems problems [facility] Allergies, Adverse Reactions, Alerts This patient has no known allergies or adverse reactions. Social History Social Habit Start Date Stop Date Quantity Comments Source Sex Assigned At [birth year] [facility] [place] 00:00:00 00:00:00 [facility] Smoking Status Start Date Stop Date Source Never smoker [facility] Medications Ordered Filled Start Stop Current Ordering Indication Dosage Frequency Signature Comments Components Source Medication Medication Date Date Medication? Clinician (SIG) Name Name ketoconazol Yes [id number] Apply to [facility] e 2 % cream 12-22 area(s) ity o f 00:00: daily. [address] benzonatate 2019-0 Yes [id number] 200mg Take 1 [facility] 200 mg 9-24 capsule by ity of capsule 00:00: mouth 3 [place] [id number] (three) Medical times [place] daily as needed for Cough for up to 20 doses. ibuprofen Yes [id number] 600mg Take 1 [facility] 600 mg 9-24 tablet by ity of tablet 00:00: mouth [place] 00 every 6 Medical (six) Branch hours as needed for Pain (scale 4-6). ondansetron 2019-0 Yes [id number] 4mg Take 1 Univers (ZOFRAN 9-24 tablet [...] Procedure Date / Time Performed Performing Clinician [facility] e CONSENT/REFUSAL FOR 2021-05-25 20:11:18 Doctor Unassigned, No Un [facility] DIAGNOSIS AND Name Medical Branch TREATMENT Encounters Start End Encounter Admission Attending Care Care Encounter Source Date/Time Date/Time Type Type Clinicians Facility Department ID 2021-05-25 2021-05-25 Emergency [facility] [id number] Univers 15:15:00 15:41:00 [place] [id number] i ty of [place] [id number] [facility] [id number] [facility] 084 Branch Results This patient has no known results.
--- NOTE | 2021-06-01 15:38 | ER ---
Nurse's Notes [facility] Name: Kal Cool Age: 25 yrs Sex: Male : 1995 Arrival Date: 06/01/2021 Time: 12:57 Bed Waiting Private MD: Diagnosis: Coronavirus infection, unspecified Presentation: 06/01 13:11 Chief complaint: Patient states: body aches, sore throat, feels like eyes heavy, was iw tested for COVID 8 days ago and was negative, now wants a retest. Coronavirus screen: Client presents with at least one sign or symptom that may indicate coronavirus-19. Ebola Screen: Patient negative for fever greater than or equal to 101.5 degrees Fahrenheit, and additional compatible Ebola Virus Disease symptoms Patient denies exposure to infectious person. Patient denies travel to an Ebola-affected area in the 21 days before illness onset. No symptoms or risks identified at this time. Initial Sepsis Screen: Does the patient meet any 2 criteria? No. Patient's initial sepsis screen is negative. Does the patient have a suspected source of infection? No. Patient's initial sepsis screen is negative. Risk Assessment: Do you want to hurt yourself or someone else? Patient reports no desire to harm self or others. Onset of symptoms was May 24, 2021. 13:11 Method Of Arrival: Ambulatory iw 13:11 Acuity: DIEGO 4 iw Historical: - Allergies: 13:13 No Known Allergies; iw - PMHx: 13:13 Seizures; iw - Immunization history:: Adult Immunizations. - Social history:: Smoking status: . Screenin:19 Abuse screen: Denies threats or abuse. Nutritional screening: No deficits noted. tw2 Tuberculosis screening: No symptoms or risk factors identified. Fall Risk None identified. Vital Signs: 13:11 BP 123 / 85; Pulse 95; Resp 16; Temp 99.3; Pulse Ox 100% on R/A; iw ED Course: 12:57 Patient arrived in ED. as 13:13 Triage completed. iw 13:13 Arm band placed on. iw 13:23 [facility]-C [facility] kb 13:23 Chilango Fofana MD is Attending Physician. kb 14:19 Adult w/ patient. tw2 Administered Medications: No medications were administered Outcome: 15:37 Discharge ordered by . kb 16:13 Patient left the ED. tw2 Signatures: Gwen Muller, KALEY METZGER-Alie Shipman as Flor Rowland, RN RN iw Amalia Beal RN RN tw2
--- NOTE | 2021-06-01 15:38 | EDPHYS ---
Physician Documentation [facility] Name: Kal Cool Age: 25 yrs Sex: Male : 1995 Arrival Date: 06/01/2021 Time: 12:57 Bed Waiting Private MD: ED Physician Chilango Fofana HPI: 06/01 15:44 This 25 yrs old Male presents to ER via Ambulatory with complaints of Pain kb All Over, Diarrhea, Fever. 15:44 The patient or guardian reports cough, that is intermittent, flu symptoms, low-grade kb fever, myalgias. Onset: The symptoms/episode began/occurred 2 day(s) ago. Severity of symptoms: At their worst the symptoms were moderate, in the emergency department the symptoms are unchanged. Modifying factors: The symptoms are alleviated by nothing, the symptoms are aggravated by nothing. Associated signs and symptoms: Pertinent positives: diarrhea, sore throat. The patient has not experienced similar symptoms in the past. The patient has been recently seen at the [facility] Emergency Department. Pt reports and son have COVID, now he is having bodyaches, sore throat, diarrhea and malaise. . Historical: - Allergies: 13:13 No Known Allergies; iw - PMHx: 13:13 Seizures; iw - Immunization history:: Adult Immunizations. - Social history:: Smoking status: . ROS: 15:42 Cardiovascular: Negative for chest pain, palpitations, and edema. kb 15:42 Constitutional: Positive for body aches, fatigue, malaise. 15:42 ENT: Positive for sore throat. 15:42 Respiratory: Positive for cough. 15:42 Abdomen/GI: Positive for diarrhea. 15:42 All other systems are negative. Exam: 15:43 Constitutional: This is a well developed, well nourished patient who is awake, alert, kb and in no acute distress. Head/Face: Normocephalic, atraumatic. ENT: Moist Mucous membranes Respiratory: Respirations even and unlabored. No increased work of breathing, no retractions or nasal flaring. Skin: Warm, dry with normal turgor. Normal color. MS/ Extremity: Pulses equal, no cyanosis. Neurovascular intact. Full, normal range of motion. Neuro: Awake and alert, GCS 15, oriented to person, place, time, and situation. Moves all extremities. Normal gait. Psych: Awake, alert, with orientation to person, place and time. Behavior, mood, and affect are within normal limits. Vital Signs: 13:11 BP 123 / 85; Pulse 95; Resp 16; Temp 99.3; Pulse Ox 100% on R/A; iw MDM: 13:23 Patient medically screened. 15:41 Data reviewed: vital signs, nurses notes. Data interpreted: Pulse oximetry: on room air kb is 100 %. Interpretation: normal. Counseling: I had a detailed discussion with the patient and/or guardian regarding: the historical points, exam findings, and any diagnostic results supporting the discharge/admit diagnosis, lab results, the need for outpatient follow up, a family practitioner, to return to the emergency department if symptoms worsen or persist or if there are any questions or concerns that arise at home. 06/01 13:23 Order name: COVID-19 : Document "Date of Symptom Onset" if Symptomatic. 06/01 15:37 Order name: SARS-COV-2 RT PCR; Complete Time: 15:37 EDMS Administered Medications: No medications were administered Disposition: 06/02 04:45 Co-signature as Attending Physician, Chilango Fofana MD I agree with the assessment and kdr plan of care. Disposition Summary: 06/01/21 15:37 Discharge Ordered Location: Home kb Condition: Stable kb Diagnosis - Coronavirus infection, unspecified kb Followup: kb - With: Emergency Department - When: As needed - Reason: Worsening of condition Followup: kb - With: Private Physician - When: 2 - 3 days - Reason: Recheck today's complaints, Continuance of care, Re-evaluation by your physician Discharge Instructions: - Discharge Summary Sheet kb - COVID-19 kb Forms: - Medication Reconciliation Form kb - Thank You Letter kb - Antibiotic Education kb - Prescription Opioid Use kb Signatures: Dispatcher [employer] EDMS Gwen Muller, DOMENICA-C Chilango Haley MD MD kdr Flor Rowland, RN RN iw Amalia Beal RN RN tw2 Corrections: (The following items were deleted from the chart) 06/01 14:28 13:24 CORONAVIRUS ordered. EDMS EDMS
== END 2021-06-01 16:13 | disposition home or self-care (01) ==
LOC: ER 12:50
DX: U07.1 COVID-19 (principal)
CPT/HCPCS: 99281; U0003

== ENCOUNTER 2023-05-06 18:22 | Emergency (ER) | payer BC, OTHER ==
--- OUTSIDE RECORDS SUMMARY | 2023-05-06 18:56 | XMS REPORT | Continuity of Care Document ---
:1995 Author Organization [facility] t Address [address] [place] [address] Care Team Providers Name Role Phone PCP, PATIENT DOES NOT HAVE A Primary Care Physician Unavaila MAGDI Claros Attending Clinician Unavailable Magdi Merrill MD Attending Clinician CARLI ANN Attending Clinician Unavailable Lyudmila Kenney OT Attending Clinician Unavailable Carli Ann MD Attending Clinician Doctor Unassigned, [place] Attending Clinician Unavailable Gonzalez BAUM Attending Clinician Unavailable Gonzalez Chaney Attending Clinician OLE LR Attending Clinician Unavailable Ole Lazaro Attending Clinician DEB STERN Attending Clinician Unavailable Kristal Chacon Attending Clinician ANGELA WYLIE Attending Clinician Unavailable Lab, Adc Fam Pob I Attending Clinician Unavailable Angela Zavala Attending Clinician Gonzalez BAUM Admitting Clinician Unavailable Payers Payer Name Policy Type Policy Number Effective Date Expiration Date [facility] [id number] 2014 00:00:00 [facility] STAR [id number] 2021 00:00:00 Problems Condition Condition Condition Status Onset Resolution Last Treating Co mments Source Name Details Category Date Date Treatment Clinician Date No known No known Disease Unive rs active active ity of problems problems [facility] Allergies, Adverse Reactions, Alerts Allergy Allergy Status Severity Reaction(s) Onset Inactive Treating Comm ents Source Name Type Date Date Clinician NO KNOWN Drug Active Univers ALLERGIE Class ity of S [facility] Social History Social Habit Start Date Stop Date Quantity Comments Source Exposure to 2022-02-02 2022-02-12 Not sure [facility] SARS-CoV-2 (event) 00:00:00 14:29:00 Medica l Branch Sex Assigned At [birth year] [facility] 00:00:00 00:00:00 [facility] Smoking Status Start Date Stop Date Source Never smoker [facility] Medications Ordered Filled Start Stop Current Ordering Indication Dosage Frequency Signature Comments Components Source Medication Medication Date Date Medication? Clinician (SIG) Name Name ibuprofen Yes [id number] 600mg Take 1 U nivers 600 mg 5-20 tablet by ity of tablet 00:00: [place] [address] every 6 Medical (six) Branch hours as needed for Pain (scale 4-6). ibuprofen Yes [id number] 600mg Take 1 U nivers 600 mg 5-20 tablet by ity of tablet 00:00: mouth [place] [address] every 6 Medical (six) Branch hours as needed for Pain (scale 4-6). ibuprofen Yes [id number] 600mg Take 1 U nivers 600 mg 5-20 tablet by ity of tablet 00:00: mouth [place] [address] every 6 Medical (six) Branch hours as needed for Pain (scale 4-6). ibuprofen Yes [id number] 600mg Take 1 U nivers 600 mg 5-20 tablet by ity of tablet 00:00: [place] [address] every 6 Medical (six) Branch hours as needed for Pain (scale 4-6). ketoconazol Yes [id number] Apply to Univers e 2 % cream 4-01 area(s) ity o f 00:00: daily. [place] [facility] ketoconazol Yes [id number] Apply to Univers e 2 % cream 4-01 area(s) ity o f 00:00: daily. Medical Branch ketoconazol 2020-0 Yes [id number] Apply to Univers e 2 % cream 4- area(s) ity o f 00:00: daily. Medical Branch ketoconazol 2020-0 Yes [id number] Apply to Univers e 2 % cream 4- area(s) ity o f 00:00: daily. Medical Branch benzonatate 2020-0 Yes [id number] 200mg Take 1 Univers 200 mg 9-24 capsule by ity of capsule 00:00: mouth 3 (three) Medical times Branch daily as needed for Cough for up to 20 doses. ibuprofen 2020-0 Yes [id number] 600mg Take 1 Univers 600 mg 9-24 tablet by ity of tablet 00:00: mouth 00 every 6 Medical (six) Branch hours as needed for Pain (scale 4-6). ondansetron 2020-0 Yes [id number] 4mg Take 1 Univers (ZOFRAN 9-24 tablet by ity of ODT) 4 mg 00:00: mouth [place] disintegrat 00 every 8 Medic al ing tablet (eight) Branch hours as needed for Nausea and Vomiting (N/V). benzonatate 2020-0 Yes [id number] 200mg Take 1 Univers 200 mg 9-24 capsule by ity of capsule 00:00: mouth (three) Medical times Branch daily as needed for Cough for up to 20 doses. ibuprofen 2020-0 Yes [id number] 600mg Take 1 Univers 600 mg 9-24 tablet by ity of tablet 00:00: mouth [place] every 6 Medical (six) Branch hours as needed for Pain (scale 4-6). ondansetron 2020-0 Yes [id number] 4mg Take 1 Univers (ZOFRAN 9-24 tablet by ity of ODT) 4 mg 00:00: mouth [place] disintegrat 00 every 8 Medic al ing tablet (eight) Branch hours as needed for Nausea and Vomiting (N/V). benzonatate 2020-0 Yes [id number] 200mg Take 1 Univers 200 mg 9-24 capsule by ity of capsule 00:00: mouth 3 (three) Medical times Branch daily as needed for Cough for up to 20 doses. ibuprofen 2020-0 Yes [id number] 600mg Take 1 Univers 600 mg 9-24 tablet by ity of tablet 00:00: mouth [place] 00 every 6 Medical (six) Branch hours as needed for Pain (scale 4-6). ondansetron 2020-0 Yes [id number] 4mg Take 1 Univers (ZOFRAN 9-24 tablet by ity of ODT) 4 mg 00:00: mouth [place] disintegrat 00 every 8 Medic al ing tablet (eight) Branch hours as needed for Nausea and Vomiting (N/V). benzonatate 2020-0 Yes [id number] 200mg Take 1 Univers 200 mg 9-24 capsule by ity of capsule 00:00: mouth 3 [place] 00 (three) Medical times Branch daily as needed for Cough for up to 20 doses. ibuprofen 2020-0 Yes [id number] 600mg Take 1 Univers 600 mg 9-24 tablet by ity of tablet 00:00: mouth [place] 00 every 6 Medical (six) Branch hours as needed for Pain (scale 4-6). ondansetron 2020-0 Yes [id number] 4mg Take 1 Univers (ZOFRAN 9-24 tablet by ity of ODT) 4 mg 00:00: mouth [place] disintegrat 00 every 8 Medic al ing tablet (eight) Branch hours as needed for Nausea and Vomiting (N/V). neomycin-po 2018-0 Yes 4[drp] Place 4 U nivers lymyxin-hyd 4-11 Drops in ity of rocortisone 00:00: left ear 4 [place] 3.5-10,000- 00 (four) Medica l 1 times Branch mg/mL-unit/ daily. For mL-% otic a week susp traMADOL 50 2018-0 Yes 50mg Take 1 Univ ers mg tablet 4-11 tablet by ity o f 00:00: mouth [place] 00 every 6 Medical (six) Branch hours as needed (pain). neomycin-po 2018-0 Yes 4[drp] Place 4 U nivers lymyxin-hyd 4-11 Drops in ity of rocortisone 00:00: left ear 4 [place] 3.5-10,000- 00 (four) Medica l 1 times Branch mg/mL-unit/ daily. For mL-% otic a week susp traMADOL 50 2018-0 Yes 50mg Take 1 Univ ers mg tablet 4-11 tablet by ity o f 00:00: mouth [place] 00 every 6 Medical (six) Branch hours as needed (pain). neomycin-po 2017-0 Yes 4[drp] Place 4 U nivers lymyxin-hyd 4-11 Drops in ity of rocortisone 00:00: left ear 4 [place] 3.5-,000- 00 (four) Medica l 1 times Branch mg/mL-unit/ daily. For mL-% otic a week susp traMADOL 50 0 Yes 50mg Take 1 Univ ers mg tablet 4-11 tablet by ity o f 00:00: mouth [place] 00 every 6 Medical (six) Branch hours as needed (pain). neomycin-po 2017-0 Yes 4[drp] Place 4 U nivers lymyxin-hyd 4-11 Drops in ity of rocortisone 00:00: left ear 4 [place] 3.5-,000- 00 (four) Medica l 1 times Branch mg/mL-unit/ daily. For mL-% otic a week susp traMADOL 50 Yes 50mg Take 1 Univ ers mg tablet 4-11 tablet by ity o f 00:00: mouth [place] 00 every 6 Medical (six) Branch hours as needed (pain). Vital Signs Vital Name Observation Time Observation Value Comments Source Systolic blood 2022-02-12 20:23:00 135 [facility]Hg[facility] Diastolic blood 2022-02-12 20:23:00 76 mm[Hg] [facility] Heart rate 2022-02-12 20:23:00 61 /min [facility] Body temperature 2022-02-12 20:23:00 36.5 Monalisa [facility] Respiratory rate 2022-02-12 20:23:00 16 /min [facility] Body weight 2022-02-12 20:23:00 87.091 kg [facility] BMI 2022-02-12 20:23:00 30.99 kg/m2 [facility] Oxygen saturation in 2022-02-12 20:23:00 99 /min [facility] Arterial blood by [facility] Pulse oximetry Branch Procedures This patient has no known procedures. Encounters Start End Encounter Admission Attending Care Care Encounter Source Date/Time Date/Time Type Type Clinicians Facility Department ID 2021-07-23 Emergency [facility] [id number] Univers 10:13:09 itshwetha [facility] 2022-04-09 2022-04-09 [facility] [id number] Univers 00:00:00 00:00:00 MAGDI castrejon [facility] 2022-03-12 2022-03-12 [facility] [id number] Univers 13:15:00 13:15:00 MAGDI castrejon [facility] 2022-03-05 2022-03-05 Telephone [facility] [id number] Univers 00:00:00 00:00:00 Magdi BOYLE [id number] ity of [id number] [id number] [place]ical [facility] [address] [facility] 2022-02-13 2022-02-13 Outpatient R [facility] [id number] Univers 09:30:00 12:58:09 [facility] 2022-02-13 2022-02-13 Ancillary Lyudmila Kenney [facility] 1.2.84 0.114 [id number] Univers 09:30:00 12:58:09 Visit Carli Ann [id number] it[id number] [id number] [place] [facility] [address] [facility] 2022-02-13 2022-02-13 Outpatient R SETH [facility] [id number] Univers 09:30:00 09:30:00 CARLI castrejon [facility] 2022-02-13 2022-02-13 Outpatient Guido [facility] [id number] Univers 09:30:00 09:30:00 [facility] 2022-02-13 2022-02-13 Telephone [facility] [id number] Univers 00:00:00 00:00:00 Magdi BOYLE [id number] [id number] [id number] [place] dic[address] 2022-02-12 2022-02-12 Outpatient R [facility] [id number] Univers 15:15:00 16:01:49 MAGDI itshwetha [facility] 2022-02-12 2022-02-12 Office [facility] [id number] Univers 15:15:00 16:01:49 Visit Magdi BOYLE [id number] ity [facility] [id number] [id number] [place] dic[address] 2022-02-12 2022-02-12 Outpatient R [facility] [id number] Univers 15:15:00 16:01:49 MAGDI cash [facility] 2022-02-12 2022-02-12 Orders Doctor HAM 1.2.840.114 [id number] Univers 00:00:00 00:00:00 Only Unassigned, JOHN [id number] ity of [place] [facility] [id number] Ovidio as [id number] [facility] 009 Branch 2022-02-09 2022-02-09 Emergency X BAUTISTA, K [facility] ERT [id number] Univers 13:48:00 17:35:00 ity of [facility] 2022-02-09 2022-02-09 Emergency Bautista, K [facility] 1.2.840.114 [id number] Univers 13:48:00 17:35:00 Rocio BOYLE [id number] i ty [facility] [id number] [id number] [facility] 084 Branch 2022-02-09 2022-02-09 Emergency X BAUTISTA, K [facility] ERT [id number] Univers 13:48:00 17:35:00 ity [facility] 2022-02-09 2022-02-09 Orders Doctor HAM 1.2.840.114 [id number] Univers 00:00:00 00:00:00 Only Unassigned, JOHN [id number] [facility] [id number] [place] as [id number] [address] 2021-09-18 2021-09-18 Emergency [facility] [id number] Univers 17:02:00 18:07:00 OLE [facility] 2021-09-18 2021-09-18 Emergency [facility] [id number] Univers 17:02:00 18:07:00 Ole Naranjo TAMAR [id number] i ty of [place] [id number] [facility] [id number] [address] 2021-05-25 2021-05-25 Outpatient R LEENA [facility] [id number] Univers 20:00:00 20:00:00 [facility] 2021-05-25 2021-05-25 Outpatient R LEENA [facility] [id number] Univers 20:00:00 20:00:00 [facility] 2021-05-25 2021-05-25 Emergency X [facility] ERT [id number] Univers 15:15:00 15:41:00 ity [facility] 2021-05-25 2021-05-25 Emergency [facility] [id number] Univers 15:15:00 15:41:00 Bethany [id number] i ty of [place] [id number] [facility] [id number] [address] 2021-05-25 2021-05-25 Emergency X [facility] ERT [id number] Univers 15:15:00 15:41:00 ity [facility] 2020-12-22 2020-12-22 Emergency Bautista, Gonzalez Rocio [facility] 1.2.840. [id number] Univers 19:28:00 20:42:00 Kristal Harrison [id number] ity of [place] [id number] [facility] [id number] [address] 2020-08-19 2020-08-19 Outpatient Guido WYLIE [facility] [id number] Univers 19:40:00 19:40:00 ANGELA castrejon o f [facility] 2020-08-19 2020-08-19 Laboratory Lab, Adc Fam Pob I [facility] 1.2. [id number] Univers 18:35:44 18:37:23 Only Angela Wylie [id number] ity of [place] [id number] [place] Professio [id number] [place]ical [facility] [address] 2020-08-19 2020-08-19 Letter Doctor HAM 1.2.840.114 [id number] Univers 00:00:00 00:00:00 (Out) Unassigned, JOHN [id number] ity of [place] [facility] [id number] Ovidio as [id number] [facility] [address] 2020-06-16 2020-06-16 Emergency Gonzalez Baum [facility] 1.2.840.114 [id number] Univers 16:37:00 21:59:00 Rocio Tamar [id number] i ty of [id number] [place] [facility] [id number] [facility] 084 Branch 2020-06-16 2020-06-16 Emergency X Gonzalez BAUM [facility] ERT [id number] Univers 16:37:00 16:37:00 ity of [facility] 2020-06-16 2020-06-16 Orders Doctor HAM 1.2.840.114 [id number] Univers 00:00:00 00:00:00 Only Unassigned, JOHN [id number] ity of [place] [facility] 4.2.7.2.686 [place] as [id number] [facility] [address] Results This patient has no known results.
--- NOTE | 2023-05-06 20:45 | ER ---
Nurse's Notes [facility] Name: Kal Cool Age: 27 yrs Sex: Male : 1995 Arrival Date: 05/06/2023 Time: 18:22 Bed DIS5 Private MD: Diagnosis: SARS-associated coronavirus as the cause of diseases classified elsewhere Presentation: 05/06 18:45 Chief complaint: Patient states: exposure to covid. Congestion and mild cough that me1 started this morning. Coronavirus screen: Vaccine status: Patient reports being unvaccinated. congestion, cough unrelated to allergies. Ebola Screen: No symptoms or risks identified at this time. Initial Sepsis Screen: Does the patient meet any 2 criteria? No. Patient's initial sepsis screen is negative. Does the patient have a suspected source of infection? No. Patient's initial sepsis screen is negative. Risk Assessment: Do you want to hurt yourself or someone else? Patient reports no desire to harm self or others. Onset of symptoms was May 06, 2023. 18:45 Method Of Arrival: Ambulatory mo1 18:45 Acuity: DIEGO 4 me1 Historical: - Allergies: 18:48 No Known Allergies; me1 - Home Meds: 18:48 trazodone [Active]; me1 - PMHx: 18:48 insomnia; me1 - PSHx: 18:48 eye surgery; knee surgery; me1 - Immunization history:: Adult Immunizations up to date. - Social history:: Smoking status: Patient reports use of chewing tobacco. Screenin:15 [facility] ED Fall Risk Assessment (Adult) History of falling in the last 3 months, mb9 including since admission No falls in past 3 months (0 pts) Confusion or Disorientation No (0 pts) Intoxicated or Sedated No (0 pts) Impaired Gait No (0 pts) Mobility Assist Device Used No (0 pt) Altered Elimination No (0 pt) Score/Fall Risk Level 0 - 2 = Low Risk Oriented to surroundings, Maintained a safe environment, Educated pt \T\ family on fall prevention, incl call for assistance when getting out of bed. Abuse screen: Denies threats or abuse. Nutritional screening: No deficits noted. Tuberculosis screening: No symptoms or risk factors identified. Assessment: 19:15 General: Appears in no apparent distress. Behavior is calm, cooperative. Pain: Denies mb9 pain. Neuro: Level of Consciousness is awake, alert, obeys commands, Oriented to person, place, time, situation, Appropriate for age. Cardiovascular: Patient's skin is warm and dry. Respiratory: Reports cough that is. GI: No signs and/or symptoms were reported involving the gastrointestinal system. : No signs and/or symptoms were reported regarding the genitourinary system. Derm: Skin is pink, warm \T\ dry. Musculoskeletal: Range of motion: intact in all extremities. Vital Signs: 18:45 Pulse 78; Resp 16; Temp 97.7; Pulse Ox 98% ; Weight 88 kg; Height 5 ft. 6 in. ; me1 18:45 Body Mass Index 31.31 (88.00 kg, 167.64 cm) mo1 ED Course: 18:30 Patient arrived in ED. mg5 18:32 Gwen Muller FNP-C is [facility]. kb 18:32 Armond Newell MD is Attending Physician. kb 18:41 Arm band placed on. mb9 18:41 Placed in gown. Bed in low position. Call light in reach. Side rails up X 1. Client mb9 placed on continuous cardiac and pulse oximetry monitoring. NIBP monitoring applied. 18:48 Triage completed. me1 19:15 No provider procedures requiring assistance completed. Patient did not have IV access mb9 during this emergency room visit. 19:34 Tammie Baldwin, RN is Primary Nurse. mb9 Administered Medications: No medications were administered Medication: 18:41 VIS not applicable for this client. mb9 Outcome: 20:45 Discharge ordered by . kb 21:10 Discharged to home ambulatory. mb9 21:10 Condition: stable 21:10 Discharge instructions given to patient, Instructed on discharge instructions, follow up and referral plans. Demonstrated understanding of instructions, follow-up care. 21:11 Patient left the ED. mb9 Signatures: Gwen Muller FNP-C FNP-Ckb Breneman, Mary Beth, RN RN mb9 Candelaria Castellon RN RN me1 Brooke Trinh mg5 Corrections: (The following items were deleted from the chart) 18:49 18:48 PMHx: Seizures; me1 me1
--- NOTE | 2023-05-06 20:45 | EDPHYS ---
Physician Documentation [facility] Name: Kal Cool Age: 27 yrs Sex: Male : 1995 Arrival Date: 05/06/2023 Time: 18:22 Bed DIS5 Private MD: ED Physician Armond Newell HPI: 05/06 21:04 This 27 yrs old Male presents to ER via Ambulatory with complaints of COVID EXPOSED. kb 21:04 The patient or guardian reports cough, that is intermittent, described as mild. Onset: kb The symptoms/episode began/occurred today. Severity of symptoms: At their worst the symptoms were mild, in the emergency department the symptoms are unchanged. Modifying factors: The symptoms are alleviated by nothing, the symptoms are aggravated by nothing. Associated signs and symptoms: Pertinent positives: rhinorrhea, Pertinent negatives: chest pain, diarrhea, ear ache, fever, nausea, sore throat, vomiting. The patient has not experienced similar symptoms in the past. The patient has not recently seen a physician. Pt reports nasal congestion and mild cough since this morning. Daughter tested positive for covid on home test and he wants to be tested.. Historical: - Allergies: 18:48 No Known Allergies; me1 - Home Meds: 18:48 trazodone [Active]; me1 - PMHx: 18:48 insomnia; me1 - PSHx: 18:48 eye surgery; knee surgery; me1 - Immunization history:: Adult Immunizations up to date. - Social history:: Smoking status: Patient reports use of chewing tobacco. ROS: 21:05 Constitutional: Negative for fever, chills, and weight loss. kb 21:05 ENT: Positive for rhinorrhea. 21:05 Respiratory: Positive for cough. 21:05 All other systems are negative. Exam: 21:05 Constitutional: This is a well developed, well nourished patient who is awake, alert, kb and in no acute distress. Head/Face: Normocephalic, atraumatic. ENT: Moist Mucous membranes Cardiovascular: Regular rate and rhythm with a normal S1 and S2. No gallops, murmurs, or rubs. No pulse deficits. Respiratory: Respirations even and unlabored. No increased work of breathing. Talking in full sentences Abdomen/GI: Soft, non-tender. No distention Skin: Warm, dry with normal turgor. Normal color. MS/ Extremity: Pulses equal, no cyanosis. Neurovascular intact. Full, normal range of motion. Neuro: Awake and alert, GCS 15, oriented to person, place, time, and situation. Moves all extremities. Normal gait. Vital Signs: 18:45 Pulse 78; Resp 16; Temp 97.7; Pulse Ox 98% ; Weight 88 kg; Height 5 ft. 6 in. ; me1 18:45 Body Mass Index 31.31 (88.00 kg, 167.64 cm) me1 MDM: 18:32 Patient medically screened. kb 21:05 Differential Diagnosis: Influenza Upper Respiratory Infection Other covid. Data kb reviewed: vital signs, nurses notes. Counseling: I had a detailed discussion with the patient and/or guardian regarding: the historical points, exam findings, and any diagnostic results supporting the discharge/admit diagnosis, lab results, the need for outpatient follow up, a family practitioner, to return to the emergency department if symptoms worsen or persist or if there are any questions or concerns that arise at home. 05/06 18:38 Order name: SARS-COV-2 RT PCR; Complete Time: 20:41 kb Administered Medications: No medications were administered Disposition Summary: 05/06/23 20:45 Discharge Ordered Location: Home kb Condition: Stable kb Diagnosis - SARS-associated coronavirus as the cause of diseases classified elsewhere kb Followup: kb - With: Emergency Department - When: As needed - Reason: Worsening of condition Followup: kb - With: Private Physician - When: 2 - 3 days - Reason: Recheck today's complaints, Continuance of care, Re-evaluation by your physician Discharge Instructions: - Discharge Summary Sheet kb - COVID-19 kb - Viral Illness, Adult kb Forms: - Medication Reconciliation Form kb - Thank You Letter kb - Antibiotic Education kb - Prescription Opioid Use kb - Patient Portal Instructions kb - Leadership Thank You Letter kb Signatures: Dispatcher [employer] Gwen Pringle, DATA WAREHOUSE SPECIALIST-C DOMENICA-Candelaria Crystal, RN RN me1 Corrections: (The following items were deleted from the chart) 18:49 18:48 PMHx: Seizures; me1 me1
[2023-05-06 21:24] VITALS: TEMP 97.7; O2SAT 98
== END 2023-05-06 21:11 | disposition home or self-care (01) ==
LOC: ER 18:22
DX: U07.1 COVID-19 (principal); R05.9 Cough, unspecified; R09.81 Nasal congestion; Z72.0 Tobacco use
CPT/HCPCS: 87635; 99283